=== PATIENT | female | born 1995 | race Hispanic/Latino ===

== ENCOUNTER 2017-10-30 09:03 | Outpatient (CLI) | payer BC | END 2017-10-30 09:04 | disposition home or self-care (01) | LOC: BICULT 09:03 | PROVIDERS: ATTEND Nurse Practitioner Family | DX: L03.121 Acute lymphangitis of right axilla (principal); R22.31 Localized swelling, mass and lump, right upper limb ==

== ENCOUNTER 2018-04-29 09:45 | Outpatient (CLI) | payer BC ==
--- NOTE | 2018-04-29 10:55 | ULT ---
RIGHT AXILLARY ULTRASOUND: HISTORY: Palpable mass in the right axilla. This has not changed in size, per the patient. The patient state s she has had this for over a year. COMPARISON: 10/30/2017 TECHNIQUE: Multiplanar epps-scale and color Doppler images were obtained in a targeted ultrasound of the right a xilla. FINDINGS: There is a well circumscribed, hypoechoic structure with increased through transmission in the right axilla, measuring 1.9 x 1.3 x 2.0 cm in size. This does not demonstrate internal flow and has a juan lar appearance compared to the prior examination. This is immediately underneath the dermis and may be associated with the dermis. No obvious sinus tract is seen to the skin surface. IMPRESSION: The lesion in the right axilla is very superficial and likely does not represent a lymph node. This most likely represents either a sebaceous cyst or a complex cyst associated with the one in the patie nt's hair follicles/sweat glands in the right axilla. She was instructed that, if she desires furthe r treatment of this abnormality, she should see a general surgeon for excision. POS: SERGEY
== END 2018-04-29 09:46 | disposition home or self-care (01) ==
LOC: BICULT 09:45
PROVIDERS: ATTEND Nurse Practitioner Family
DX: L03.121 Acute lymphangitis of right axilla (principal); R22.31 Localized swelling, mass and lump, right upper limb
CPT/HCPCS: 76999

== ENCOUNTER 2018-10-09 18:46 | Emergency (ER) | payer BC | END 2018-10-09 19:17 | disposition home or self-care (01) | LOC: SCSER 18:46 | DX: S16.1XXA Strain of muscle, fascia and tendon at neck level, initial encounter (principal); S50.312A Abrasion of left elbow, initial encounter; V89.2XXA Person injured in unspecified motor-vehicle accident, traffic, initial encounter | CPT/HCPCS: 99283 ==